=== PATIENT | female | born 1965 | race Caucasian/White ===

== ENCOUNTER 2016-09-11 16:24 | Observation (INO) | payer SELFPAY ==
[~2016-09-11] VITALS: Ht 165.1 cm; Wt 78.0 kg
[~2016-09-11 16:24] MED LIST: CETI1TAB21 PO; CIPR500T4 PO; FLAG500T PO; IBUP800T23 PO; TRAM50TA PO
[2016-09-11 16:27] VITALS: BP 133/86; PULSE 100; RESP 20; TEMP 98.2; O2SAT 100
--- NOTE | 2016-09-11 16:33 | PD ---
Physical Exam Time Seen by Provider: 16:31 Narrative 51 y/o female here for evaluation of LUQ pain/chest pain which started yesterday. Vital signs reviewed. Seen at triage desk. Awaiting bed placement. Data Data Last Documented VS Vital Signs Date Time Temp Pulse Resp B/P Pulse Ox O2 Delivery O2 Flow Rate FiO2 09/11/16 16:27 98.2 100 20 133/86 100 Room Air Orders Electrocardiogram (09/11/16 16:33) Ckmb (Isoenzyme) Profile (09/11/16 16:33) Complete Blood Count With Diff (09/11/16 16:33) Comprehensive Metabolic Panel (09/11/16 16:33) Magnesium (Mg) (09/11/16 16:33) Prothrombin Time / Inr (Pt) (09/11/16 16:33) Act Partial Throm Time (Ptt) (09/11/16 16:33) Troponin I (09/11/16 16:33) Lipase (09/11/16 16:33) Chest, Single Ap (09/11/16 16:33) MDM Medical Record Reviewed: Yes Supervised Visit with ADELAIDA: Roberth Johnson Sep 11, 2016 16:33
--- NOTE | 2016-09-11 17:09 | RADRPT ---
EXAM DATE/TIME: 09/11/2016 16:55 [facility] COMPARISON: No previous studies available for comparison. INDICATIONS : Left anterior chest pain, denies injury MEDICAL HISTORY : None. SURGICAL HISTORY : None. ENCOUNTER: Initial ACUITY: 2 days PAIN SCORE: 7/10 LOCATION: Left chest FINDINGS: A single view of the chest demonstrates the lungs to be symmetrically aerated without evidence of mas s, infiltrate or effusion. The cardiomediastinal contours are unremarkable. Osseous structures are intact. Specifically, no evidence for displaced rib fracture to correspond to site of pain. CONCLUSION: 1. No acute cardiopulmonary disease. Phan Leonard MD on September 11, 2016 at 17:05 Board Certified Radiologist. This report was verified electronically.
[2016-09-11] MEDS ORDERED: CETI10 PO (17:31)
[2016-09-11] MEDS ORDERED: ADIP37.55 PO (17:32)
[2016-09-11 17:54] LABS: AUTOMATED NEUTROPHIL # 4.4 TH/MM3 (1.8-7.7); BASOPHIL # 0.1 TH/MM3 (0-0.2); BASOPHIL % 0.7 % (0.0-2.0); EOSINOPHIL # 0.1 TH/MM3 (0-0.4); HEMATOCRIT 40.3 % (35.0-46.0); HEMO FLAGS DIFF FINAL; LYMPH % 32.5 % (9.0-44.0); LYMPHOCYTE # 2.4 TH/MM3 (1.0-4.8); MEAN CELL VOLUME 87.2 FL (80.0-100.0); MEAN CORPUSCULAR HEMOGLOBIN 28.3 PG (27.0-34.0); MEAN CORPUSCULAR HGB CONC 32.5 % (32.0-36.0); MONO % 4.7 % (0.0-8.0); NEUT % 60.1 % (16.0-70.0); PLATELET COUNT 204 TH/MM3 (150-450); RED BLOOD COUNT 4.62 MIL/MM3 (4.00-5.30); RED CELL DISTRIBUTION WIDTH 14.2 % (11.6-17.2); WHITE BLOOD COUNT 7.3 TH/MM3 (4.0-11.0)
[2016-09-11 18:09] LABS: ANION GAP 10 MEQ/L (5-15); AST (GOT) 16 U/L (15-37); BICARBONATE 23.5 MEQ/L (21.0-32.0); BLOOD UREA NITROGEN 11 MG/DL (7-18); CHLORIDE 109 MEQ/L (98-107); GLOMERULAR FILTRATION RATE 77 ML/MIN (>89); MAGNESIUM 2.1 MG/DL (1.5-2.5); POTASSIUM 4.1 MEQ/L (3.5-5.1); SODIUM (NA) 142 MEQ/L (136-145)
[2016-09-11 18:14] LABS: ALKALINE PHOSPHATASE 85 U/L (45-117); ALT (GPT) 18 U/L (10-53); TOTAL BILIRUBIN ADULT 0.3 MG/DL (0.2-1.0)
[2016-09-11 18:18] LABS: CREATINE KINASE 62 U/L (26-192)
[2016-09-11 18:22] LABS: APTT (PATIENT) 22.4 SEC (24.3-30.1); INTERNATIONAL NORMALIZED RATIO 0.9 RATIO
[2016-09-11] MEDS ORDERED: ONDANSETRON HCL 4 MG/2 ML VIAL IV PRN (18:30)
[2016-09-11] MEDS ORDERED: SODIUM CHLORIDE 0.9% FLUSH 10 ML FLUSH IV FLUSH PRN (18:30)
[2016-09-11] MEDS ORDERED: ASPIRIN 81 MG CHEW TAB PO ONE (18:30)
[2016-09-11 18:34] VITALS: O2SAT 99
--- NOTE | 2016-09-11 19:02 | PD ---
HPI Chief Complaint: Chest Pain Time Seen by Provider: 19:02 Travel History International Travel<30 days: No Contact w/Intl Traveler<30days: No Traveled to known affect area: No History of Present Illness HPI 51-year-old female with history of asthma, diverticulitis, presents to the emergency department for evaluation of left-sided chest pain. Patient states been intermittently occurring over the last day. It occurs mostly at rest. Patient denies any nausea or vomiting. as a lightheadedness or diaphoresis. No recent illnesses, fever, chills. No cardiac history. Patient states that her physician "Dr. Samuel lopez [place]" recommended that she come in for evaluation. PFSH Past Medical History Arthritis: No Asthma: Yes (ALLERGY INDUCED ) Autoimmune Disease: No Blood Disorders: No Heart Rhythm Problems: No Cancer: No Cardiovascular Problems: No High Cholesterol: No Chest Pain: No Congestive Heart Failure: No COPD: No Cerebrovascular Accident: No Diabetes: No Diminished Hearing: No Diverticulitis: Yes Endocrine: No Gastrointestinal Disorders: Yes (DIVERTICULITIS) GERD: No Genitourinary: No Headaches: No Hepatitis: No Hiatal Hernia: No Hypertension: No Immune Disorder: No Kidney Stones: No Medical other: Yes (DIVERTICULOSIS) Musculoskeletal: Yes (RIGHT SH. TENDONITIS) Neurologic: No Psychiatric: No Reproductive: No Respiratory: Yes (seasonal asthma) Migraines: No Myocardial Infarction: No Renal Failure: No Seizures: No Sleep Apnea: No Thyroid Disease: No Ulcer: No Tetanus Vaccination: > 5 Years Influenza Vaccination: No ?: Not Menopausal: Yes : 5 Para: 1 Ovarian Cysts: Yes Past Surgical History Abdominal Surgery: Yes (PARTIAL COLECTOMY-colon resection r/t diverticulisis) Appendectomy: Yes Cardiac Surgery: No Cholecystectomy: No Ear Surgery: No Endocrine Surgery: No Eye Surgery: No Genitourinary Surgery: No Gynecologic Surgery: Yes (BILATERAL BREAST LUMPECTOMY-beign tumors, ) Hysterectomy: Yes Neurologic Surgery: No Oral Surgery: No Thoracic Surgery: No Tonsillectomy: Yes Other Surgery: Yes (NASAL, JAW) Social History Alcohol Use: Yes (occas. mix drinks, ) Tobacco Use: No Substance Use: No (pt denies ) Allergies-Medications (Allergen,Severity, Reaction): Coded Allergies: Levaquin (Verified Allergy, Severe, SEVERE SWEATING AND SHAKES, 09/11/16) Morphine (Verified Allergy, Severe, ITCHING, HIVES, 09/11/16) Lortab (Verified Adverse Reaction, Severe, "makes me hyper", 09/11/16) Reported Meds & Prescriptions Reported Meds & Active Scripts Active Reported Adipex-P (Phentermine HCl) 37.5 Mg Tab 37.5 Tab PO DAILY Cetirizine (Cetirizine HCl) 10 Mg Tab 10 Mg PO DAILY Review of Systems Except as stated in HPI: all other systems reviewed are Neg Physical Exam Narrative GENERAL: Well-nourished female patient, in no acute distress SKIN: Focused skin assessment warm/dry. HEAD: Atraumatic. Normocephalic. EYES: Pupils equal and round. No scleral icterus. No injection or drainage. ENT: No nasal bleeding or discharge. Mucous membranes pink and moist. NECK: Trachea midline. No JVD. CARDIOVASCULAR: Elevated rate and rhythm. No murmur appreciated. RESPIRATORY: No accessory muscle use. Clear to auscultation. Breath sounds equal bilaterally. GASTROINTESTINAL: Abdomen soft, non-tender, nondistended. No guarding. No rebound tenderness. Hepatic and splenic margins not palpable. MUSCULOSKELETAL: No obvious deformities. No clubbing. No cyanosis. No edema. NEUROLOGICAL: Awake and alert. No obvious cranial nerve deficits. Motor grossly within normal limits. Normal speech. Data Data Last Documented VS Vital Signs Date Time Temp Pulse Resp B/P Pulse Ox O2 Delivery O2 Flow Rate FiO2 09/11/16 17:32 98 16 Room Air 09/11/16 16:27 98.2 133/86 100 Orders Electrocardiogram (09/11/16 16:33) Ckmb (Isoenzyme) Profile (09/11/16 16:33) Complete Blood Count With Diff (09/11/16 16:33) Comprehensive Metabolic Panel (09/11/16 16:33) Magnesium (Mg) (09/11/16 16:33) Prothrombin Time / Inr (Pt) (09/11/16 16:33) Act Partial Throm Time (Ptt) (09/11/16 16:33) Troponin I (09/11/16 16:33) Lipase (09/11/16 16:33) Chest, Single Ap (09/11/16 16:33) Admit Order (Ed Use Only) (09/11/16 18:30) Activity Bed Rest With Brp (09/11/16 18:30) Vital Signs (Adult) Q4H (09/11/16 18:30) Cardiac Rhythm .As Directed (09/11/16 18:30) Notify Dr: Other .PRN (09/11/16 18:30) Notify DrShane Parameters (09/11/16 18:30) Resp Oxygen Nasal Cannula (09/11/16 ) Diet Npo (09/12/16 Breakfast) Diet Heart Healthy (09/11/16 Dinner) Ckmb (Isoenzyme) Profile (09/11/16 20:00) Ckmb (Isoenzyme) Profile (09/11/16 23:00) Troponin I (09/11/16 20:00) Troponin I (09/11/16 23:00) Electrocardiogram (09/11/16 20:00) Electrocardiogram (09/11/16 23:00) ^ Obtain (09/11/16 18:30) Sodium Chloride 0.9% Flush (Ns Flush) (09/11/16 18:30) Sodium Chloride 0.9% Flush (Ns Flush) (09/11/16 21:00) Acetaminophen (Tylenol) (09/11/16 18:30) Ondansetron Inj (Zofran Inj) (09/11/16 18:30) Aspirin Chew (Aspirin Chew) (09/11/16 18:30) Foreign Banknote Teller / Telemetry NYDIA.Q8H (09/11/16 18:30) Dwayne Bilateral/Knee High NYDIA.QSHIFT (09/11/16 18:30) Labs Laboratory Tests Test 09/11/16 17:07 White Blood Count 7.3 TH/MM3 Red Blood Count 4.62 MIL/MM3 Hemoglobin 13.1 GM/DL Hematocrit 40.3 % Mean Corpuscular Volume 87.2 FL Mean Corpuscular Hemoglobin 28.3 PG Mean Corpuscular Hemoglobin 32.5 % Concent Red Cell Distribution Width 14.2 % Platelet Count 204 TH/MM3 Mean Platelet Volume 9.4 FL Neutrophils (%) (Auto) 60.1 % Lymphocytes (%) (Auto) 32.5 % Monocytes (%) (Auto) 4.7 % Eosinophils (%) (Auto) 2.0 % Basophils (%) (Auto) 0.7 % Neutrophils # (Auto) 4.4 TH/MM3 Lymphocytes # (Auto) 2.4 TH/MM3 Monocytes # (Auto) 0.3 TH/MM3 Eosinophils # (Auto) 0.1 TH/MM3 Basophils # (Auto) 0.1 TH/MM3 CBC Comment DIFF FINAL Differential Comment Prothrombin Time 10.0 SEC Prothromb Time International 0.9 RATIO Ratio Activated Partial 22.4 SEC Thromboplast Time Sodium Level 142 MEQ/L Potassium Level 4.1 MEQ/L Chloride Level 109 MEQ/L Carbon Dioxide Level 23.5 MEQ/L Anion Gap 10 MEQ/L Blood Urea Nitrogen 11 MG/DL Creatinine 0.79 MG/DL Estimat Glomerular Filtration 77 ML/MIN Rate Random Glucose 82 MG/DL Calcium Level 9.1 MG/DL Magnesium Level 2.1 MG/DL Total Bilirubin 0.3 MG/DL Aspartate Amino Transf 16 U/L (AST/SGOT) Alanine Aminotransferase 18 U/L (ALT/SGPT) Alkaline Phosphatase 85 U/L Total Creatine Kinase 62 U/L Troponin I LESS THAN 0.02 NG/ML Total Protein 8.0 GM/DL Albumin 4.1 GM/DL Lipase 196 U/L [facility] Medical Decision Making Medical Screen Exam Complete: Yes Emergency Medical Condition: Yes Medical Record Reviewed: Yes Differential Diagnosis Chest wall pain versus pleuritic pain versus ACS versus anxiety versus gastritis versus pancreatitis Narrative Course 51-year-old female presents to emergency department for evaluation left-sided chest pain. Patient appears well without distress. EKG is without acute concern. CBC and CMP are without acute concern. Lipase is 196. Troponin is less than 0.02. I discussed with my attending physician who agrees the patient would benefit from chest consider admission to rule out or in cardiac etiology of symptoms. Plan is discussed with the patient. She is in agreement with this plan of care. Diagnosis Primary Impression: Chest pain Admitting Information Admitting Physician Requests: Observation Condition: Stable SubramanianNichol abdi NICOLE Sep 11, 2016 19:02
[2016-09-11 19:30] VITALS: BP 135/87; PULSE 86; RESP 18; O2SAT 100
[2016-09-11] MEDS: ACETAMINOPHEN 500 MG CPLT PO PRN (19:43)
[2016-09-11 20:20] VITALS: BP 130/80; PULSE 75; RESP 17; TEMP 98.8; O2SAT 100
[2016-09-11] MEDS: SODIUM CHLORIDE 0.9% FLUSH 10 ML FLUSH IV FLUSH SCH (21:00)
[2016-09-11 21:12] LABS: CREATINE KINASE 58 U/L (26-192)
[2016-09-11 23:32] VITALS: BP 120/80; PULSE 79; RESP 18; TEMP 98.8; O2SAT 98
[2016-09-11 23:36] LABS: CREATINE KINASE 53 U/L (26-192)
[2016-09-12 04:20] VITALS: BP 129/69; PULSE 83; RESP 18; TEMP 98.8; O2SAT 98
[2016-09-12] MEDS: ACETAMINOPHEN 500 MG CPLT PO PRN (04:32)
[2016-09-12 08:00] VITALS: PULSE 82
[2016-09-12 08:05] VITALS: BP 127/83; PULSE 88; RESP 20; TEMP 98.6; O2SAT 99
[2016-09-12] MEDS: SODIUM CHLORIDE 0.9% FLUSH 10 ML FLUSH IV FLUSH SCH (08:33)
[2016-09-12] MEDS ORDERED: CETIRIZINE HCL 10 MG TAB PO SCH (10:00)
--- NOTE | 2016-09-12 10:19 | HHI.HP ---
[facility] Primary Care Physician Justin Ojeda MD Chief Complaint Chest pain History of Present Illness This is a 51-year-old female that presents to the ED via private vehicle complaining of a left lower chest wall pain has been present intermittently for 2 weeks. She describes as a pressure/sharp discomfort that will last seconds at a time but has continued to recur over the last 2 weeks. She is found a certain movements will bring on the discomfort. No associated shortness breath , nausea, or diaphoresis. She cannot recall any recent trauma to cause the discomfort. Denies any knowledge of coronary disease. Denies hypertension, hyperlipidemia diabetes. Denies any family history of heart disease and states she is a lifetime nonsmoker. Denies recent illness. Denies fevers or chills. Review of Systems General: Patient denies fevers, chills recent, and recent travel HEENT: Patient denies headache, sore throat, difficulty swallowing. Cardiovascular: Has the chest discomfort as mentioned above. Denies sensation of heart beating rapidly or irregularly. No syncope. Denies diaphoresis. Respiratory: Denies shortness of breath or inspirational chest discomfort. Denies coughing wheezing or hemoptysis. GI: Patient denies nausea, vomiting, diarrhea, abdominal pain, bloody stools. Musculoskeletal: Patient denies joint pain or edema. Denies calf pain or edema. Neurovascular: Patient denies numbness, tingling, weakness in extremities. Denies headache. Endocrine: Denies polyuria and polydipsia. Hematologic: Denies easy bruising. Skin: Denies rash or itching. Past Family Social History Allergies: Coded Allergies: Levaquin (Verified Allergy, Severe, SEVERE SWEATING AND SHAKES, 09/11/16) Morphine (Verified Allergy, Severe, ITCHING, HIVES, 09/11/16) Lortab (Verified Adverse Reaction, Severe, "makes me hyper", 09/11/16) Past Medical History Asthma. Diverticulitis with history of 2 colon resections. Denies hypertension , hyperlipidemia, diabetes, and known CAD. Past Surgical History Colon Resections 2. Reported Medications Reported Meds & Active Scripts Active Reported Adipex-P (Phentermine HCl) 37.5 Mg Tab 37.5 Tab PO DAILY Cetirizine (Cetirizine HCl) 10 Mg Tab 10 Mg PO DAILY Active Ordered Medications Current Medications Medications (Trade) Dose Ordered Sig/Cheyanne Route Start Time Stop Time Status Last Admin (NS Flush) 2 ml UNSCH PRN IV FLUSH 09/11/16 18:30 (NS Flush) 2 ml BID IV FLUSH 09/11/16 21:00 09/12/16 08:33 (Tylenol) 500 mg Q4H PRN PO 09/11/16 18:30 09/12/16 04:32 (Zofran Inj) 4 mg Q6H PRN IV 09/11/16 18:30 (ZyrTEC) 10 mg DAILY PO 09/12/16 10:00 09/12/16 09:02 Family History Denies family history of CAD. Social History Patient is a lifetime nonsmoker. Denies illicit drugs. Has occasional local. She works as a [employer]. Physical Exam Vital Signs Vital Signs Date Time Temp Pulse Resp B/P Pulse Ox O2 Delivery O2 Flow Rate FiO2 09/12/16 08:05 98.6 88 20 127/83 99 09/12/16 04:20 98.8 83 18 129/69 98 09/11/16 23:32 98.8 79 18 120/80 98 09/11/16 20:20 98.8 75 17 130/80 100 09/11/16 19:30 86 18 135/87 100 Room Air 09/11/16 18:34 99 21 09/11/16 17:32 98 16 Room Air 09/11/16 16:27 98.2 100 20 133/86 100 Room Air Physical Exam GENERAL: This is a well-nourished, well-developed patient, in no apparent distress. Patient speaks in clear complete sentences. Patient is pleasant. HEENT: Head is atraumatic and normocephalic. Neck is supple without lymphadenopathy and trachea is midline. No JVD or carotid bruits. CARDIOVASCULAR: Regular rate and rhythm without murmurs, gallops, or rubs. RESPIRATORY: Clear to auscultation. Breath sounds equal bilaterally. No wheezes , rales, or rhonchi. Chest wall is tender. There is a pinpoint area of reproducible tenderness that is the discomfort she has been having.. No use of accessory muscles. GASTROINTESTINAL: Abdomen is nontender, nondistended. Abdomen soft. No obvious pulsatile mass or bruit. No CVA tenderness. Strong femoral pulses bilaterally. Normal bowel sounds in all quadrants. MUSCULOSKELETAL: Patient is moving upper and lower extremities freely. No calf tenderness or edema, no Homans sign. Strong pulses in upper and lower extremities. NEUROLOGICAL: Patient is alert and oriented. Cranial nerves 2-12 are grossly intact. No focal deficits and speech is clear. SKIN: No rash and turgor is normal. Laboratory Laboratory Tests Test 09/11/16 09/11/16 09/11/16 17:07 20:10 22:55 White Blood Count 7.3 Red Blood Count 4.62 Hemoglobin 13.1 Hematocrit 40.3 Mean Corpuscular Volume 87.2 Mean Corpuscular Hemoglobin 28.3 Mean Corpuscular Hemoglobin 32.5 Concent Red Cell Distribution Width 14.2 Platelet Count 204 Mean Platelet Volume 9.4 Neutrophils (%) (Auto) 60.1 Lymphocytes (%) (Auto) 32.5 Monocytes (%) (Auto) 4.7 Eosinophils (%) (Auto) 2.0 Basophils (%) (Auto) 0.7 Neutrophils # (Auto) 4.4 Lymphocytes # (Auto) 2.4 Monocytes # (Auto) 0.3 Eosinophils # (Auto) 0.1 Basophils # (Auto) 0.1 CBC Comment DIFF FINAL Differential Comment Prothrombin Time 10.0 Prothromb Time International 0.9 Ratio Activated Partial 22.4 Thromboplast Time Sodium Level 142 Potassium Level 4.1 Chloride Level 109 Carbon Dioxide Level 23.5 Anion Gap 10 Blood Urea Nitrogen 11 Creatinine 0.79 Estimat Glomerular Filtration 77 Rate Random Glucose 82 Calcium Level 9.1 Magnesium Level 2.1 Total Bilirubin 0.3 Aspartate Amino Transf 16 (AST/SGOT) Alanine Aminotransferase 18 (ALT/SGPT) Alkaline Phosphatase 85 Total Creatine Kinase 62 58 53 Troponin I LESS THAN 0.02 LESS THAN 0.02 LESS THAN 0.02 Total Protein 8.0 Albumin 4.1 Lipase 196 Result Diagram: 09/11/16 1707 09/11/16 1707 Imaging Last 24 hours Impressions Chest X-Ray 09/11/16 1633 Signed Impressions: Service Date/Time: Sunday, September 11, 2016 16:55 - CONCLUSION: 1. No acute cardiopulmonary disease. Phan Leonard MD Course EKGs have sinus rhythm without significant ST segment depressions or elevations. Assessment and Plan Assessment and Plan * Atypical chest pain: Patient has had serial cardiac enzymes and EKGs for ruling out purposes. She has also been seen by Dr. Guthrie of cardiology in the chest pain center and will be discharged home at this time with instructions to use anti-inflammatories for the discomfort. She should follow-up with her primary care physician. Patient is stable at this time. She is agreeable to this plan. Raciel Villela Sep 12, 2016 10:19
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
--- NOTE | 2016-09-12 10:26 | HHI.DCPOC ---
Discharge Care Plan Diagnosis: (1) Chest pain, atypical Goals to Promote Your Health * To prevent worsening of your condition and complications * To maintain your health at the optimal level Directions to Meet Your Goals Take your medications as prescribed Follow your dietary instruction Follow activity as directed Keep your appointments as scheduled Take your immunizations and boosters as scheduled If your symptoms worsen call your PCP, if no PCP go to Urgent Care Center or Emergency Room Smoking is Dangerous to Your Health. Avoid second hand smoke Call the 24-hour hour crisis hotline for domestic abuse at Raciel Villela Sep 12, 2016 10:26
--- NOTE | 2016-09-12 15:28 | EKG ---
Date Performed: 09/11/2016 Time Performed: 23:36:14 PTAGE: 51 years EKG: Sinus rhythm NORMAL ECG NO SIG CHANGE PREVIOUS TRACING : 09/11/2016 20.35 DOCTOR: Imer Guthrie Interpretating Date/Time 09/12/2016 15:27:52
--- NOTE | 2016-09-12 15:30 | EKG ---
Date Performed: 09/11/2016 Time Performed: 20:35:07 PTAGE: 51 years EKG: Sinus rhythm NORMAL ECG PREVIOUS TRACING : 09/11/2016 16.59 DOCTOR: Imer Guthrie Interpretating Date/Time 09/12/2016 15:29:15
--- NOTE | 2016-09-12 15:32 | EKG ---
Date Performed: 09/11/2016 Time Performed: 16:59:28 PTAGE: 51 years EKG: Sinus rhythm WITH SHORT MO INTERVAL BORDERLINE ECG NO SIG CHANGE PREVIOUS TRACING : 01/25/2009 10.43 DOCTOR: Imer Guthrie Interpretating Date/Time 09/12/2016 15:30:15
== END 2016-09-12 12:03 | disposition home or self-care (01) ==
LOC: NEPC 16:24 → NEDA 18:33 → NEPFCDU 19:56
PROVIDERS: ADMIT Internal Medicine Cardiovascular Disease; ATTEND Internal Medicine Cardiovascular Disease
DX: R07.89 Other chest pain (principal)
CPT/HCPCS: 71010; 80053; 82550; 83690; 83735; 84484; 85025; 85610; 85730; 93005; 99285; G0378